=== PATIENT | female | born 1985 | race Caucasian/White ===

== ENCOUNTER 2022-02-24 10:03 | Emergency (ER) | payer OTHER ==
[~2022-02-24] VITALS: Ht 165.1 cm; Wt 68.0 kg
[2022-02-24 12:26] VITALS: BP 118/77
[2022-02-24] MEDS ORDERED: IOPAMIDOL 370 MG/ML 100 ML INFUS..BTL INJ ONE (13:30)
== END 2022-02-24 12:30 | disposition home or self-care (01) ==
LOC: FSED 10:08
DX: R07.9 Chest pain, unspecified (principal); F43.0 Acute stress reaction; Z82.49 Family history of ischemic heart disease and other diseases of the circulatory system
CPT/HCPCS: 71046; 80053; 81003; 81025; 82553; 84484; 85025; 93005; 99284; Q9967